=== PATIENT | male | born 1965 | race Caucasian/White ===

== ENCOUNTER 2024-01-09 05:05 | Inpatient (IN) | payer OTHER ==
[~2024-01-09] VITALS: Ht 170.2 cm; Wt 76.2 kg
[~2024-01-09 05:05] MED LIST: ALAVERT10 M1 PO; COZAAR 50MG50 MG/TAB PO; CYMBALTA 30MG30 MG PO; FLOMAX 0.40.4 MG/CAP PO; GLUCOPHAGE1000 MG PO; JARDIANCE25 PO; LEVAQUIN 750MG750 M1 PO; LIPITOR 80MG80 MG PO; MELATONIN5 M1 SL; MINIPRESS 5M5 MG/CAP PO; NESINA25 PO; OMEGA-3 FISH1000 MG PO; PEPCID 20MG TAB20 MG PO; PREDNISONE20 MG PO; PROAIR HFA0.09 MG/AC IH; ROBAXIN 75750 MG/TAB PO; VITAMIN D31000 I1 PO
[2024-01-09 05:38] LABS: BASO # 0.1 K/mm3 (0.0-0.2); BASO % 0.4 % (0.0-2.0); EOS # 0.2 K/mm3 (0.0-0.7); EOS % 1.2 % (0.0-4.0); GRAN # 13.5 K/mm3 (1.4-6.5); GRAN % 86.2 % (42.2-75.2); HEMOGLOBIN 15.2 g/dl (13.5-18.0); LYMPH # 1.1 K/mm3 (1.2-3.4); LYMPH % 7.2 % (20.0-51.0); MEAN CELL VOLUME 82 fl (80.0-100.0); MEAN CORPUSCULAR HEMOGLOBIN 30 pg (27-31); MEAN CORPUSCULAR HGB CONC 36 g/dl (33.0-37.0); MEAN PLATELET VOLUME 10.1 fl (7.4-10.4); MONO # 0.7 K/mm3 (0.1-0.6); MONO % 4.4 % (1.7-9.3); PLATELET COUNT 254 K/mm3 (130-400); RED BLOOD COUNT 5.14 M/mm3 (4.20-5.60); REDCELL DISTRIBUTION WIDTH-CV 13.9 % (11.5-14.5)
[2024-01-09] MEDS ORDERED: NS 50 ML IV SCH (05:42)
[2024-01-09] MEDS ORDERED: Iohexol 300 - 100 ML VIAL IV ONE (05:42)
[2024-01-09] MEDS ORDERED: LR 1,000 ML IV SCH (05:45)
[2024-01-09 06:05] LABS: ALBUMIN 4.2 g/dL (3.5-5.0); BILIRUBIN,TOTAL 1.8 mg/dL (0.2-1.2); CREATININE, serum 1.25 mg/dL (0.72-1.25); POTASSIUM 3.6 mEq/L (3.5-4.5); TOTAL PROTEIN 8.2 g/dl (6.2-8.1)
[2024-01-09] MEDS ORDERED: cefTRIAXone 2 G in Water For Injection,Sterile 20 ML IV ONE (06:15)
[2024-01-09] MEDS ORDERED: JANUVIA25 MG PO (06:21)
[2024-01-09] MEDS ORDERED: ANTACID 225 MG360 M1 PO (06:24)
[2024-01-09 06:28] LABS: COLLECTION METHOD CLEAN CATCH
[2024-01-09] MEDS ORDERED: Ketorolac 15 MG/ML VIAL IV ONE (06:30)
[2024-01-09 06:54] LABS: URINE APPEARANCE CLEAR (CLEAR/HAZY); URINE BLOOD NEGATIVE (NEGATIVE); URINE COLOR YELLOW (YELLOW); URINE GLUCOSE 1+ (NEGATIVE); URINE KETONE NEGATIVE (NEGATIVE); URINE NITRATE NEGATIVE (NEGATIVE); URINE PROTEIN(semi-quant) 1+ (NEGATIVE); URINE UROBILINOGEN 0.2 E.U/dL (0.2-1.0)
[2024-01-09] MEDS ORDERED: LYRICA 25MG CAP25 MG PO (07:06)
[2024-01-09] MEDS ORDERED: Acetaminophen 325 MG TAB PO PRN (07:30)
[2024-01-09] MEDS ORDERED: NS 1,000 ML IV SCH (07:30)
[2024-01-09] MEDS ORDERED: Azithromycin 500 MG in NS 250 ML IV SCH ×2 (07:30→11:45)
--- NOTE | 2024-01-09 10:50 | NUR ---
REC'D PT FROM ED. ORIENTED X4. PT REPORTS CHRONIC LOW BACK PAIN, CURRENTLY 05/16. TOLERABLE AT 6/10. 2L NC. ASSESSMENT COMPLETE. NO OTHER COMPLAINTS AT THIS TIME. FALL PRECAUTIONS IN PLACE. CALL LIGHT IN REACH.
[2024-01-09 11:10] VITALS: BP 145/82; PULSE 94; TEMP 97.8
[2024-01-09] MEDS ORDERED: cefTRIAXone 1 G in Water For Injection,Sterile 10 ML IV SCH (11:45)
[2024-01-09] MEDS ORDERED: Albuterol/Ipratropium 3 MG-0.5 MG/3 ML Neb Soln IH PRN (12:00)
[2024-01-09] MEDS ORDERED: Famotidine 20 MG TAB PO SCH (13:57)
[2024-01-09] MEDS ORDERED: DULoxetine 30 MG CAP PO SCH (13:57)
[2024-01-09] MEDS ORDERED: Albuterol/Ipratropium 3 MG-0.5 MG/3 ML Neb Soln IH SCH (14:00)
[2024-01-09 15:22] VITALS: BP 136/80; PULSE 82; TEMP 98.1
[2024-01-09] MEDS ORDERED: Budesonide Neb Susp 0.5 MG/2 ML AMP IH SCH (19:00)
[2024-01-09 19:33] VITALS: BP 161/89; PULSE 83; TEMP 98
--- NOTE | 2024-01-09 20:00 | NUR ---
PATIENT IS A&O. PATIENT AMBULATING AROUND ROOM INDEPENDENTLY WITH STEADY GAIT. TOLERATING ACTIVITY WELL. NO C/O SOA. PATIENT REPORTS HE IS COUGHING LESS AND HIS THROAT FEELS BETTER. FLU & COVID NEGATIVE. IV FLUIDS INFUSING VIA PUMP INTO LEFT AC IV. NO C/O N/V. TOLERATING DIET. HS MEDS GIVEN. HEAD TO TOE ASSESSMENT COMPLETE. NO OTHER NEEDS AT THIS TIME. CALL LIGHT IN REACH.
[2024-01-09] MEDS ORDERED: Atorvastatin 80 MG TAB PO SCH (21:00)
[2024-01-09] MEDS ORDERED: Melatonin 3 MG TAB PO SCH (21:00)
[2024-01-09 23:41] VITALS: BP 149/82; BP 165/90; PULSE 75; PULSE 96; TEMP 97.8; TEMP 98.4
[2024-01-10 03:50] VITALS: BP 157/88; PULSE 81; TEMP 98.2
[2024-01-10 06:19] LABS: BASO % 0.4 % (0.0-2.0); EOS # 0.2 K/mm3 (0.0-0.7); EOS % 1.8 % (0.0-4.0); GRAN # 6.7 K/mm3 (1.4-6.5); GRAN % 73.9 % (42.2-75.2); LYMPH # 1.5 K/mm3 (1.2-3.4); LYMPH % 16.1 % (20.0-51.0); MEAN CELL VOLUME 81 fl (80.0-100.0); MEAN CORPUSCULAR HGB CONC 37 g/dl (33.0-37.0); MEAN PLATELET VOLUME 10.4 fl (7.4-10.4); MONO # 0.6 K/mm3 (0.1-0.6); MONO % 6.9 % (1.7-9.3); PLATELET COUNT 212 K/mm3 (130-400); RED BLOOD COUNT 4.06 M/mm3 (4.20-5.60); REDCELL DISTRIBUTION WIDTH-CV 13.6 % (11.5-14.5)
[2024-01-10 06:37] LABS: CREATININE, serum 0.84 mg/dL (0.72-1.25); POTASSIUM 3.4 mEq/L (3.5-4.5)
[2024-01-10 06:52] LABS: HEMATOCRIT 32.8 % (42.0-52.0); HEMOGLOBIN 12.1 g/dl (13.5-18.0); MEAN CORPUSCULAR HEMOGLOBIN 30 pg (27-31)
[2024-01-10] MEDS ORDERED: cefTRIAXone 1 G in Water For Injection,Sterile 10 ML IV SCH (07:00)
[2024-01-10 07:49] VITALS: BP 145/90; PULSE 90; TEMP 97.8
--- NOTE | 2024-01-10 08:00 | NUR ---
PT SITTING UP IN BED. ORIENTED X4. ASSESSMENT COMPLETE. MORNING MEDS GIVEN. NO COMPLAINTS AT THIS TIME. FALL PRECAUTIONS IN PLACE, CALL LIGHT IN REACH. PT HAS BEEN GETTING UP INDEPENDENTLY WITHOUT ANY ISSUES.
[2024-01-10] MEDS ORDERED: Influenza Virus Vaccine, Trivalent '24-25 0.5 ML SYRINGE IM SCH (09:00)
[2024-01-10] MEDS ORDERED: Empagliflozin 25 MG TAB PO SCH (09:24)
[2024-01-10] MEDS ORDERED: Losartan 50 MG TAB PO SCH (09:25)
[2024-01-10] MEDS ORDERED: Prazosin 5 MG CAP PO SCH ×2 (09:27→21:00)
[2024-01-10] MEDS ORDERED: Loratadine 10 MG TAB PO PRN (09:30)
--- NOTE | 2024-01-10 10:59 | NUR ---
Initial visit; Patient cannot talk above a whisper but responded to [facility] [employer]'s introduction and offer to keep Randall in her prayers. He agreed and thanked for coming by.
[2024-01-10 11:18] VITALS: BP 146/75; PULSE 88; TEMP 97.3
[2024-01-10] MEDS ORDERED: Insulin Lispro (HumaLOG) SQ SCH (12:00)
[2024-01-10 15:10] VITALS: BP 150/89; PULSE 71; TEMP 97.8
[2024-01-10] MEDS ORDERED: Dextrose 50% Water 25 GM/50 ML SYRINGE IV PRN (16:15)
[2024-01-10] MEDS ORDERED: Glucagon 1 MG VIAL IM PRN (16:15)
[2024-01-10] MEDS ORDERED: Dextrose (Glucose) 15 GM (4 x 3.75 GM) Chewable TABLET PACK PO PRN (16:15)
--- NOTE | 2024-01-10 16:17 | NUR ---
SW met with pt to complete intake assessment and discuss discharge plans. Pt reports that he lives in [place] alone. His son, Aiden ph# [phone] and [id number], Neela ph#[phone] recently moved out of the home and now live in [place]. Pt has had his home for sale since November 06 and will be moving out to [place] as well. Pt reports that he is independent with ADLs, does not use any DMEs and is able to transport himself to and from all medical appointments. Pt uses [employer] insurance, PCP is Mason Singh and preferred pharmacy is at the [facility] unless immediate medications are required; he would use [facility]. Pt is able to afford all medications without issue. Pt is being treated for pneumonia. He has no needs and will discharge back home when medically cleared. LEO participated in multi-disciplinary team meeting to discuss pt's progress and discharge plan. The team has agreed that once medically discharged, pt can return home. Discharge Plan: Home
[2024-01-10 19:36] VITALS: BP 128/88; PULSE 90; TEMP 98.2
--- NOTE | 2024-01-10 20:00 | NUR ---
Assessment ocmplete. A&Ox3. Denies pain/nausea/shortness of breath. VS stable. Currently on RA. Left AC INT flushes without difficulty. No s/s of infiltration noted. Plan of care discussed for this shift to include meds/pain control/calling for questions/concerns. Verbalizes understanding. Call light in reach. Will monitor.
[2024-01-10] MEDS ORDERED: Pregabalin 25 MG CAP PO SCH (21:00)
[2024-01-10 23:44] VITALS: BP 103/56; BP 96/62; PULSE 69; TEMP 98.1
--- NOTE | 2024-01-11 02:48 | NUR ---
Patient restin gin bed eyes lcosed. NO s/s of pain or discomfort noted. Will monitor.
[2024-01-11 04:11] VITALS: BP 131/78; PULSE 112; TEMP 97.5
[2024-01-11 07:09] LABS: BASO # 0.1 K/mm3 (0.0-0.2); BASO % 0.7 % (0.0-2.0); EOS # 0.1 K/mm3 (0.0-0.7); GRAN % 70.2 % (42.2-75.2); HEMOGLOBIN 12.4 g/dl (13.5-18.0); LYMPH # 1.3 K/mm3 (1.2-3.4); LYMPH % 17.9 % (20.0-51.0); MEAN CELL VOLUME 82 fl (80.0-100.0); MEAN CORPUSCULAR HEMOGLOBIN 29 pg (27-31); MEAN CORPUSCULAR HGB CONC 35 g/dl (33.0-37.0); MEAN PLATELET VOLUME 10.3 fl (7.4-10.4); MONO # 0.6 K/mm3 (0.1-0.6); MONO % 8.5 % (1.7-9.3); PLATELET COUNT 229 K/mm3 (130-400); RED BLOOD COUNT 4.28 M/mm3 (4.20-5.60); REDCELL DISTRIBUTION WIDTH-CV 13.7 % (11.5-14.5)
[2024-01-11 07:24] LABS: ALBUMIN 3.1 g/dL (3.5-5.0); BILIRUBIN,TOTAL 0.9 mg/dL (0.2-1.2); CALCIUM 9.5 mg/dL (8.4-10.2); CREATININE, serum 1.07 mg/dL (0.72-1.25); POTASSIUM 3.8 mEq/L (3.5-4.5); TOTAL PROTEIN 6.6 g/dl (6.2-8.1)
[2024-01-11 08:00] VITALS: BP 115/73; PULSE 87; TEMP 97.4
[2024-01-11] MEDS ORDERED: Prazosin 1 MG CAP PO SCH (09:00)
--- NOTE | 2024-01-11 09:50 | NUR ---
PATIENT ALERT AND ORIENTED. NO COMLAINTS OF PAIN, OR SHORTNESS OF BREATH. HE IS EATING BREAKFAST.
[2024-01-11] MEDS ORDERED: OMNICEF 300MG300 MG PO (10:43)
[2024-01-11] MEDS ORDERED: MEDROL 4MG DOSPA4 MG PO (10:43)
--- NOTE | 2024-01-11 14:28 | NUR ---
PATIENT DISCHARGED. IV REMOVED WITH CATHETER INTACT. INSTRUCTIONS GIVEN AND FORMS SIGNED. ESCRIPTS SENT TO PHARMACY. DISCUSSED FOLLOW UP APPOINTMENTS. [facility].
== END 2024-01-11 13:18 | disposition home or self-care (01) | DRG 871 ==
LOC: COL.ER 05:05 → MEDICAL 07:27 → SURG 07:27
PROVIDERS: Emergency Medicine; ADMIT Internal Medicine
DX: A41.9 Sepsis, unspecified organism (principal); J18.9 Pneumonia, unspecified organism; J96.01 Acute respiratory failure with hypoxia; J45.901 Unspecified asthma with (acute) exacerbation; R65.20 Severe sepsis without septic shock; E11.9 Type 2 diabetes mellitus without complications; Z79.4 Long term (current) use of insulin; I10 Essential (primary) hypertension; M54.50 Low back pain, unspecified
CPT/HCPCS: A9270; J0456; J0696; J1815; J1885; J7030; J7050; J7120; Q9967